=== PATIENT | female | born 1980 | race Caucasian/White ===

== ENCOUNTER 2024-04-09 06:46 | Emergency (ER) | payer BC ==
[2024-04-09] MEDS: SODIUM CHLORIDE 0.9% 1,000 ML IV STA (07:26)
[2024-04-09] MEDS: diphenhydrAMINE 50 MG/ML 1 ML VIAL IVP STA (07:28)
[2024-04-09] MEDS: FAMOTIDINE 20 MG/2 ML VIAL IV STA (07:30)
[2024-04-09] MEDS: methylPREDNISolone SOD SUCCI 125 MG/2 ML VIAL IV STA (07:32)
[2024-04-09] MEDS: TRIAMCINOLONE 0.1% CREAM 80 GM TUBE TOPICAL STA (07:32)
--- NOTE | 2024-04-09 07:33 | ED ---
Allergic Reaction HPI - General Chief complaint: Allergic Reaction Stated complaint: allergic reaction Time Seen by Provider: 04/09/24 06:58 Source: patient, RN notes reviewed Mode of arrival: ambulatory Limitations: no limitations - History of Present Illness Initial Comments: This is a 44-year-old female who presents to the emergency department for an allergic reaction. States that this started 2 days ago and has since spread to essentially her entire body. She has been unable to control the itching. She went to urgent care 2 days ago and was given a shot of steroids. She was also started on a prednisone taper. Additionally, she is taking [id number] Benadryl [id number]. Symptoms continue to get worse. Denies any history of similar symptoms in the past. Unsure what she may have come into contact with. She does not have any chest pain, shortness of breath, difficulty swallowing, or a sore throat. MD Complaint: allergic reaction, hives - Related Data Previous Rx's Medication Instructions Recorded Famotidine [Pepcid] 20 mg PO BID 7 Days #14 tablet 04/09/24 Triamcinolone 0.1% Cream [Kenalog 1 applicatio TOPICAL QID PRN #80 gm 04/09/24 0.1% Cream] hydrOXYzine HCL [Atarax] 25 mg PO QID PRN #30 tab 04/09/24 predniSONE 50 mg PO DAILY 5 Days #5 tab 04/09/24 Allergies Allergy/AdvReac Type Severity Reaction Status Date / Time No Known Allergies Allergy Verified 04/09/24 06:58 Review of Systems ROS Statement: Those systems with pertinent positive or pertinent negative responses have been documented in the HPI. ROS Other: All systems not noted in ROS Statement are negative. Past Medical History Past Medical History: No Reported History History of Any Multi-Drug Resistant Organisms: None Reported Past Surgical History: Bladder Surgery Past Psychological History: Anxiety, Depression Smoking Status: Current some day smoker, Vaper Past Alcohol Use History: None Reported Past Drug Use History: None Reported General Exam Limitations: no limitations General appearance: alert, in no apparent distress Head exam: Present: atraumatic, normocephalic, normal inspection Respiratory exam: Present: normal lung sounds bilaterally. Absent: respiratory distress, wheezes, rales, rhonchi, stridor Cardiovascular Exam: Present: regular rate, normal rhythm, normal heart sounds. Absent: systolic murmur, diastolic murmur, rubs, gallop, clicks Neurological exam: Present: alert, oriented X3, CN II-XII intact Psychiatric exam: Present: normal affect, normal mood Skin exam: Present: other (Urticaria to the bilateral upper and lower ext remities, face, neck, and trunk) Course Vital Signs 04/09/24 04/09/24 06:55 10:06 Temperature 98.2 F 98.3 F Pulse Rate 115 H 77 Respiratory 20 18 Rate Blood Pressure 111/52 101/56 O2 Sat by Pulse 94 L 99 Oximetry Medical Decision Making - Medical Decision Making This is a 44-year-old female who presents emergency department for a rash/hives and concerns of an allergic reaction. Was pt. sent in by a medical professional or institution? @ -No Did you speak to anyone other than the patient for history? @ -No Did you review nursing and triage notes? @ -Yes, and I agree, it is accurate with regards to the patient's symptoms. Were old charts reviewed? @ -No Differential Diagnosis? @ -Differential rash: Roseola, measles, Lyme disease, urticaria, erythema multiforme, cellulitis, toxic shock syndrome, Jeremi Jeffrey syndrome, Kawasaki disease, kam mountain spotted fever, contact dermatitis, allergic dermatitis, measles, mumps, rubella, varicella, meningococcal disease, drug reaction, coxsackievirus, This is not meant to be an all-inclusive list. EKG interpreted by me (3pts min.)? @ -Not obtained X-rays interpreted by me (1pt min.)? @ -Not obtained CT interpreted by me (1pt min.)? @ -Not obtained U/S interpreted by me (1pt. min.)? @ -Not obtained What testing was considered but not performed? (CT, X-rays, U/S, labs)? Why? @ -None What meds were considered but not given? Why? @ -None Did you discuss the management of the patient with other professionals? @ -No Did you reconcile home meds? @ -No Was smoking cessation discussed for >3mins.? @ -No Was critical care preformed (if so, how long)? @ -No Were there social determinants of health that impacted care today? How? (Homelessness, low income, unemployed, alcoholism, drug addiction, transportation, low edu. Level, literacy, decrease access to med. care, penitentiary, rehab)? @ -No Was there de-escalation of care discussed even if they declined? (Discuss DNR or withdrawal of care, Hospice)? @ -No What co-morbidities impacted this encounter? (DM, HTN, Smoking, COPD, CAD, Cancer, CVA, Hep., AIDS, mental health diagnosis, sleep apnea, morbid obesity)? @ -None Was patient admitted / discharged? @ -Discharged. Patient initially treated with IV fluids and an allergy cocktail consisting of Solu-Medrol, Benadryl, and famotidine. Kenalog cream provided to use as more of a spot treatment on the most bothersome areas. She had improvement in symptoms afterwards, however they did not resolve entirely. She did not have any difficulty breathing or evidence of respiratory compromise. Prescription for Atarax provided to see if that is more effective than Benadryl for the itching. She was also given a prescription for an increased dose of prednisone to take for the next 5 days, famotidine, and triamcinolone cream. Advised follow-up with her primary care provider for reevaluation. Case discussed with ED attending Dr. Styles. Return precautions reviewed in depth, the patient is instructed to return to the emergency department with any new, worsening, or concerning symptoms. Patient verbalized understanding. Undiagnosed new problem with uncertain prognosis? @ -None Drug Therapy requiring intensive monitoring for toxicity (Heparin, Nitro, Insulin, Cardizem)? @ -None Were any procedures done? @ -None Diagnosis/symptom? @ -Urticaria, allergic reaction Acute, or Chronic, or Acute on Chronic? @ -Acute Uncomplicated (without systemic symptoms) or Complicated (systemic symptoms)? @ -Uncomplicated Side effects of treatment? @ -None Exacerbation, Progression, or Severe Exacerbation] @ -Not applicable Poses a threat to life or bodily function? @ -Unlikely Disposition Clinical Impression: Allergic reaction, Urticaria Disposition: HOME SELF-CARE Instructions (If sedation given, give patient instructions): Urticaria (ED) Additional Instructions: Return to the emergency department with any new, worsening, or concerning symptoms. Begin taking the new steroid prescription daily for the next 5 days. Take famotidine twice daily for 7 days. You can try taking the Atarax up to [address] of the Benadryl. Continue to apply the cream up to 4 times daily. Avoid applying this on the face. Follow up with your primary care provider in 1-2 days. Prescriptions: hydrOXYzine HCL [Atarax] 25 mg PO QID PRN #30 tab PRN Reason: Itching Triamcinolone 0.1% Cream [Kenalog 0.1% Cream] 1 applicatio TOPICAL QID PRN #80 gm PRN Reason: Itching Famotidine [Pepcid] 20 mg PO BID 7 Days #14 tablet predniSONE 50 mg PO DAILY 5 Days #5 tab Is patient prescribed a controlled substance at d/c from ED?: No Referrals: Oralia Diamond DO [Primary Care Provider] - 1-2 days Time of Disposition: 09:23
[2024-04-09] MEDS: KETOROLAC 15 MG/ML 1 ML VIAL IVP STA (09:49)
[2024-04-09 10:07] VITALS: BP 101/56; PULSE 77; RESP 18; TEMP 98.3
== END 2024-04-09 10:06 | disposition home or self-care (01) ==
LOC: EC 06:46
DX: L50.0 Allergic urticaria (principal); F17.290 Nicotine dependence, other tobacco product, uncomplicated
CPT/HCPCS: 99283; 96374; 96375 ×3; 96361; J1200; J3490; J1885; J2919

== ENCOUNTER 2024-04-10 00:54 | Emergency (ER) | payer BC ==
[2024-04-10 01:04] VITALS: TEMP 98.2
--- NOTE | 2024-04-10 01:35 | ED ---
Skin/Abscess/FB HPI - General Chief complaint: Skin/Abscess/Foreign Body Stated complaint: Rash/swelling on face Time Seen by Provider: 04/10/24 01:10 Source: patient, RN notes reviewed Mode of arrival: ambulatory Limitations: no limitations - History of Present Illness Initial comments: Is a 44-year-old female presents emergency department chief complaint of urticarial rash. Patient was evaluated emergency department earlier this afternoon where she was given steroids, Benadryl, and discharged home with topical steroid cream in addition to Atarax to take as needed. Patient states that she applied a bottle of steroid cream over her legs and arms and has been experiencing pruritus in addition to urticaria. Patient denies shortness of breath, difficulty breathing, tongue swelling. Patient does have minor edema of the superior lip. States she has not taken Benadryl in the last few hours. - Related Data Previous Rx's Medication Instructions Recorded Famotidine [Pepcid] 20 mg PO BID 7 Days #14 tablet 04/09/24 Triamcinolone 0.1% Cream [Kenalog 1 applicatio TOPICAL QID PRN #80 gm 04/09/24 0.1% Cream] hydrOXYzine HCL [Atarax] 25 mg PO QID PRN #30 tab 04/09/24 predniSONE 50 mg PO DAILY 5 Days #5 tab 04/09/24 Allergies Allergy/AdvReac Type Severity Reaction Status Date / Time No Known Allergies Allergy Verified 04/10/24 01:02 Review of Systems ROS Statement: Those systems with pertinent positive or pertinent negative responses have been documented in the HPI. ROS Other: All systems not noted in ROS Statement are negative. Past Medical History Past Medical History: No Reported History History of Any Multi-Drug Resistant Organisms: None Reported Past Surgical History: Bladder Surgery Additional Past Surgical History / Comment(s): missy Past Psychological History: Anxiety, Depression Smoking Status: Current some day smoker, Vaper Past Alcohol Use History: None Reported Past Drug Use History: None Reported General Exam Limitations: no limitations General appearance: alert, in no apparent distress Head exam: Present: atraumatic, normocephalic, normal inspection Eye exam: Present: normal appearance, PERRL, EOMI. Absent: scleral icterus, conjunctival injection, periorbital swelling ENT exam: Present: normal exam, mucous membranes moist Neck exam: Present: normal inspection. Absent: tenderness, meningismus, lymphadenopathy Respiratory exam: Present: normal lung sounds bilaterally. Absent: respiratory distress, wheezes, rales, rhonchi, stridor Cardiovascular Exam: Present: regular rate, normal rhythm, normal heart sounds. Absent: systolic murmur, diastolic murmur, rubs, gallop, clicks GI/Abdominal exam: Present: soft, normal bowel sounds. Absent: distended, tenderness, guarding, rebound, rigid Extremities exam: Present: normal inspection, full ROM, normal capillary refill. Absent: tenderness, pedal edema, joint swelling, calf tenderness Back exam: Present: normal inspection Neurological exam: Present: alert, oriented X3, CN II-XII intact Psychiatric exam: Present: normal affect, normal mood Skin exam: Present: warm, dry, rash, urticaria. Absent: diaphoretic Course Vital Signs 04/10/24 04/10/24 04/10/24 01:02 02:13 02:52 Temperature 98.2 F Pulse Rate 109 H 85 91 Respiratory 20 18 18 Rate Blood Pressure 124/65 119/64 125/60 O2 Sat by Pulse 96 96 95 Oximetry 04/10/24 04/10/24 03:02 03:29 Temperature Pulse Rate 88 81 Respiratory 18 18 Rate Blood Pressure 112/57 102/63 O2 Sat by Pulse 96 96 Oximetry Medical Decision Making - Medical Decision Making Was pt. sent in by a medical professional or institution ([facility], [employer], urgent care, hospital, or skilled nursing...) When possible be specific @ -No Did you speak to anyone other than the patient for history (EMS, parent, family, police, friend...)? What history was obtained from this source @ -No Did you review nursing and triage notes (agree or disagree)? Why? @ -I reviewed and agree with nursing and triage notes Were old charts reviewed (outside hosp., previous admission, EMS record, old EKG, old radiological studies, urgent care reports/EKG's, skilled nursing records)? Report findings @ -Reviewed the patient's emergency department visit note from 04/09/2024 where she was provided with IV allergic medications and discharged home in stable condition with topical steroid cream and instructed to take Atarax or Benadryl as needed. Differential Diagnosis (chest pain, altered mental status, abdominal pain women, abdominal pain men, vaginal bleeding, weakness, fever, dyspnea, syncope, headache, dizziness, GI bleed, back pain, seizure, CVA, palpatations, mental health, musculoskeletal)? @ -Urticaria, allergic reaction EKG interpreted by me (3pts min.). @ -none X-rays interpreted by me (1pt min.). @ -None done CT interpreted by me (1pt min.). @ -None done U/S interpreted by me (1pt. min.). @ -None done What testing was considered but not performed or refused? (CT, X-rays, U/S, labs)? Why? @ -None What meds were considered but not given or refused? Why? @ -None Did you discuss the management of the patient with other professionals (professionals i.e. , PA, [employer], lab, RT, psych nurse, social media strategist, farm rancher, teacher, aoc plans intelligence officer, child welfare caseworker)? Give summary @ -No Was smoking cessation discussed for >3mins.? @ -No Was critical care preformed (if so, how long)? @ -No Were there social determinants of health that impacted care today? How? (Homelessness, low income, unemployed, alcoholism, drug addiction, transportation, low edu. Level, literacy, decrease access to med. care, snf, rehab)? @ -No Was there de-escalation of care discussed even if they declined (Discuss DNR or withdrawal of care, Hospice)? DNR status @ -No What co-morbidities impacted this encounter? (DM, HTN, Smoking, COPD, CAD, Cancer, CVA, ARF, Chemo, Hep., AIDS, mental health diagnosis, sleep apnea, morbid obesity)? @ -None Was patient admitted / discharged? Hospital course, mention meds given and route, prescriptions, significant lab abnormalities, going to OR and other pertinent info. @ -discharge. 43-year-old female with depression from examination patient noted to have urticarial rash to the bilateral lower extremities most prominent over the bilateral lower extremities. She is in no signs of acute distress and is resting comfortably on room air. However it is noted that patient is agitated in regard to the pruritus and rash. There is mild edema of the superior upper lip however there is no tongue swelling. Patient is provided with IV Benadryl and oral Pepcid. On reevaluation, swelling of the superior upper lip has subsided swelling however patient states that she is still itchy. She is provided with minor dose of epinephrine. On reevaluation, patient states that symptoms have somewhat improved. Recommend the patient continue steroids as prescribed and discontinue use of topical steroid cream. All questions answered at bedside and strict return parameters jose manuel the patient she has verbalized understanding. Discussed with Dr. Thomson Undiagnosed new problem with uncertain prognosis? @ -No Drug Therapy requiring intensive monitoring for toxicity (Heparin, Nitro, Insulin, Cardizem)? @ -No Were any procedures done? @ -No Diagnosis/symptom? @ -Urticaria Acute, or Chronic, or Acute on Chronic? @ -Acute Uncomplicated (without systemic symptoms) or Complicated (systemic symptoms)? @ -Uncomplicated Side effects of treatment? @ -No Exacerbation, Progression, or Severe Exacerbation? @ -No Poses a threat to life or bodily function? How? (Chest pain, [place], [place], pneumonia, PE, COPD, DKA, ARF, appy, cholecystitis, CVA, Diverticulitis, Homicidal, Suicidal, threat to staff... and all critical care pts) @ -No Disposition Clinical Impression: Urticaria, Rash Disposition: HOME SELF-CARE Condition: Good Instructions (If sedation given, give patient instructions): Urticaria (ED) Additional Instructions: Return to the emergency department for any new or worsening symptoms. Take prednisone as prescribed from previous ER visit. Take either Benadryl or Atarax as needed for symptomatic relief. Take ibuprofen as needed. Use topical antihistamines as needed. Recommend that you discontinue topical steroid use. Is patient prescribed a controlled substance at d/c from ED?: No Referrals: Oralia Diamond DO [Primary Care Provider] - 1-2 days Time of Disposition: 03:19
[2024-04-10] MEDS: FAMOTIDINE 20 MG/2 ML VIAL IV STA (01:53)
[2024-04-10] MEDS: FAMOTIDINE 20 MG TAB PO STA (02:08)
[2024-04-10] MEDS: diphenhydrAMINE 50 MG/ML 1 ML VIAL IM STA (02:09)
[2024-04-10 02:14] VITALS: RESP 18
[2024-04-10 03:30] VITALS: BP 102/63; PULSE 81
== END 2024-04-10 03:29 | disposition home or self-care (01) ==
LOC: EC 00:54
DX: L50.9 Urticaria, unspecified (principal); F17.290 Nicotine dependence, other tobacco product, uncomplicated
CPT/HCPCS: 99283; 96372 ×2; J0171; J1200